=== PATIENT | female | born 1985 | race Caucasian/White ===

== ENCOUNTER 2019-12-16 15:08 | Observation (INO) ==
[2019-12-16 16:03] LABS: Basophils % 0.4 %; Mean Platelet Volume 10.9 fL (9.4-12.4)
[2019-12-16 16:05] LABS: Hematocrit 44.1 % (35.3-44.9); Hemoglobin 14.6 g/dL (11.5-15.4); Immature Granulocytes % 0.9 % (0-4); Immature Platelets 3.9 % (1.1-6.1); Lymphocytes # 0.5 K/mcL (0.6-4.6); Lymphocytes % 8.4 %; Mean Corpuscular HGB Conc 33.1 g/dL (31.6-35.5); Mean Corpuscular Hemoglobin 32.2 pg (28.0-33.3); Mean Corpuscular Volume 97.4 fL (83.0-100.0); Monocytes # 0.5 K/mcL (0.0-1.3); Monocytes % 8.9 %; Neutrophils # 4.6 K/mcL (1.6-8.9); Platelet Count 120 K/mcL (140-400); Red Blood Count 4.53 M/mcL (3.82-4.97); Red Cell Distribution Width 12.2 % (11.5-14.5); Segmented Neutrophils % 81.4 %; White Blood Count 5.6 K/mcL (4.3-11.1)
[2019-12-16 16:14] LABS: Alanine Aminotransferase 84 Units/L (7-52); Albumin 3.7 g/dL (3.5-5.7); Albumin/Globulin Ratio 1.2 (1.1-2.2); Alkaline Phosphatase 75 Units/L (34-104); Aspartate Amino Transferase 68 Units/L (13-39); BUN/Creatinine Ratio 11 (6-26); Bilirubin,Direct 0.1 mg/dL (0.0-0.2); Bilirubin,Indirect 0.3 mg/dL (0.0-1.0); Bilirubin,Total 0.4 mg/dL (0.3-1.0); Blood Urea Nitrogen 9 mg/dL (6-20); Calcium 8.7 mg/dL (8.6-10.3); Carbon Dioxide 27 mEq/L (23-29); Chloride 102 mEq/L (98-107); Globulin 3.2 g/dL (2.4-3.5); Glucose 134 mg/dL (70-105); Osmolality,Calculated 275 (280-300); Potassium 3.8 mEq/L (3.5-5.1); Sodium 132 mEq/L (136-145); Total Protein 6.9 g/dL (6.4-8.9); Troponin I < 0.03 ng/mL (< 0.04); eGFR For African Americans > 60 (> 60); eGFR For Non-African Americans > 60 (> 60)
[2019-12-16 16:18] LABS: Activated Partial Thrombo Time 25.9 Seconds (26.0-36.0); INR 1.1; Prothrombin Time 12.8 Seconds (9.4-12.1)
[2019-12-16] MEDS ORDERED: Isovue-370 500 ML BOTTLE IVP ONE (16:51)
[2019-12-16] MEDS ORDERED: Piperacillin/Tazobactam 3.375 GM in 0.9 % Sodium Chloride Mini Bag 100 ML IVPB ONE (16:58)
[2019-12-16 20:37] LABS: Adenovirus Not Detected (Not Detect); Bordetella Pertussis Not Detected (Not Detect); Chlamydophila pneumoniae Not Detected (Not Detect); Coronavirus 229E Not Detected (Not Detect); Coronavirus HKU1 Not Detected (Not Detect); Coronavirus NL63 Not Detected (Not Detect); Coronavirus OC43 Not Detected (Not Detect); Human Metapneumovirus Not Detected (Not Detect); Human Rhinovirus/Enterovirus Not Detected (Not Detect); Influenza A Subtype 2009 H1 Not Detected (Not Detect); Influenza B Not Detected (Not Detect); Mycoplasma pneumoniae Not Detected (Not Detect); Parainfluenza Virus 1 Not Detected (Not Detect); Parainfluenza Virus 2 Not Detected (Not Detect); Parainfluenza Virus 3 Not Detected (Not Detect); Parainfluenza Virus 4 Not Detected (Not Detect); Respiratory Syncytial Virus Not Detected (Not Detect)
[2019-12-16] MEDS ORDERED: *HR* LORazepam 2 MG/ML VIAL IVP ONE (23:06)
[2019-12-17] MEDS ORDERED: Naloxone 0.4 MG/ML INJ IVP PRN (00:31)
[2019-12-17 02:43] LABS: Hemoglobin 13.8 g/dL (11.5-15.4); Red Cell Distribution Width 12.4 % (11.5-14.5)
[2019-12-17] MEDS ORDERED: Ibuprofen 800 MG TABLET PO ONE (02:43)
[2019-12-17 02:45] LABS: Basophils % 0.6 %; Eosinophils % 0.8 %; Hematocrit 41.1 % (35.3-44.9); Immature Platelets 4.9 % (1.1-6.1); Lymphocytes # 0.7 K/mcL (0.6-4.6); Lymphocytes % 14.1 %; Mean Corpuscular HGB Conc 33.6 g/dL (31.6-35.5); Mean Corpuscular Hemoglobin 32.5 pg (28.0-33.3); Mean Corpuscular Volume 96.9 fL (83.0-100.0); Mean Platelet Volume 11.3 fL (9.4-12.4); Monocytes # 0.5 K/mcL (0.0-1.3); Monocytes % 9.4 %; Neutrophils # 3.8 K/mcL (1.6-8.9); Nucleated Red Blood Cells 0.4 /100 WBC (0); Platelet Count 107 K/mcL (140-400); Red Blood Count 4.24 M/mcL (3.82-4.97); Segmented Neutrophils % 74.1 %; White Blood Count 5.1 K/mcL (4.3-11.1)
[2019-12-17 03:24] LABS: Reactive Lymphocytes Present (Not Present)
[2019-12-17 05:29] LABS: BUN/Creatinine Ratio 11 (6-26); Blood Urea Nitrogen 9 mg/dL (6-20); Calcium 8.5 mg/dL (8.6-10.3); Carbon Dioxide 25 mEq/L (23-29); Chloride 108 mEq/L (98-107); Glucose 114 mg/dL (70-105); Osmolality,Calculated 276 (280-300); Potassium 3.8 mEq/L (3.5-5.1); Sodium 133 mEq/L (136-145); eGFR For African Americans > 60 (> 60); eGFR For Non-African Americans > 60 (> 60)
[2019-12-17] MEDS: *HR* Heparin 5,000 UNIT/ML VIAL SQ SCH ×3 (05:31→20:59)
[2019-12-17] MEDS: Melatonin 3 MG TABLET PO SCH ×2 (05:42→20:58)
[2019-12-17] MEDS: Piperacillin/Tazobactam 3.375 GM in 0.9 % Sodium Chloride Mini Bag 100 ML IVPB SCH ×2 (09:19→15:11)
[2019-12-17] MEDS: BuPROPion XL (24 HR) 150 MG TABLET PO SCH (09:20)
[2019-12-17] MEDS: Nicotine 21 MG PATCH.TD24 TD SCH (09:24)
[2019-12-17] MEDS: *HR* Buprenorphine HCl 8 MG TAB.SUBL SL SCH (11:22)
[2019-12-17] MEDS ORDERED: 0.9 % Sodium Chloride 500 ML IVC ONE (11:26)
[2019-12-17] MEDS ORDERED: hydrOXYzine pamoate 25 MG CAPSULE PO PRN (14:36)
[2019-12-17] MEDS: *HR* LORazepam 0.5 MG TABLET PO PRN ×2 (15:11→23:42)
[2019-12-17] MEDS: Nicotine 2 MG GUM BC PRN ×3 (16:01→23:42)
[2019-12-18] MEDS: Piperacillin/Tazobactam 3.375 GM in 0.9 % Sodium Chloride Mini Bag 100 ML IVPB SCH ×2 (01:25→09:13)
[2019-12-18] MEDS ORDERED: Acetaminophen 325 MG TABLET PO ONE (05:51)
[2019-12-18] MEDS: Nicotine 2 MG GUM BC PRN ×2 (06:59→12:08)
[2019-12-18] MEDS: *HR* Heparin 5,000 UNIT/ML VIAL SQ SCH (06:59)
[2019-12-18 07:15] LABS: Immature Granulocytes % 0.3 % (0-4)
[2019-12-18 07:17] LABS: Basophils % 0.5 %; Eosinophils # 0.4 K/mcL (0.0-0.6); Eosinophils % 6.2 %; Hematocrit 40.7 % (35.3-44.9); Hemoglobin 13.5 g/dL (11.5-15.4); Immature Platelets 5.5 % (1.1-6.1); Lymphocytes # 2.2 K/mcL (0.6-4.6); Lymphocytes % 34.4 %; Mean Corpuscular HGB Conc 33.2 g/dL (31.6-35.5); Mean Corpuscular Hemoglobin 31.8 pg (28.0-33.3); Monocytes # 0.8 K/mcL (0.0-1.3); Monocytes % 12.8 %; Neutrophils # 2.9 K/mcL (1.6-8.9); Platelet Count 138 K/mcL (140-400); Red Blood Count 4.24 M/mcL (3.82-4.97); Red Cell Distribution Width 12.3 % (11.5-14.5); Segmented Neutrophils % 45.8 %; White Blood Count 6.4 K/mcL (4.3-11.1)
[2019-12-18 07:22] LABS: BUN/Creatinine Ratio 10 (6-26); Blood Urea Nitrogen 8 mg/dL (6-20); Calcium 9.2 mg/dL (8.6-10.3); Carbon Dioxide 23 mEq/L (23-29); Chloride 107 mEq/L (98-107); Glucose 94 mg/dL (70-105); Osmolality,Calculated 282 (280-300); Potassium 4.3 mEq/L (3.5-5.1); Sodium 137 mEq/L (136-145); eGFR For African Americans > 60 (> 60); eGFR For Non-African Americans > 60 (> 60)
[2019-12-18 07:49] LABS: Large Platelets Present (Not Present); Platelet Estimate Normal (Normal); Reactive Lymphocytes Present (Not Present)
[2019-12-18] MEDS: BuPROPion XL (24 HR) 150 MG TABLET PO SCH ×2 (09:08→09:09)
[2019-12-18] MEDS: *HR* Buprenorphine HCl 8 MG TAB.SUBL SL SCH (09:08)
[2019-12-18] MEDS: Nicotine 21 MG PATCH.TD24 TD SCH (09:09)
[2019-12-18 09:19] LABS: Rheumatoid Factor < 10 IU/mL (Less than 14)
[2019-12-18 09:42] VITALS: BP 125/81
[2019-12-18] MEDS: *HR* LORazepam 0.5 MG TABLET PO PRN (12:08)
[2019-12-18 12:21] LABS: HIV-1&2 Antibody & p24 Ag Nonreactive (Nonreactive)
[2019-12-18] MEDS ORDERED: FLU Vac QV 19-20 (6Month+)/PF 0.5 ML SYRINGE IM ONE (16:18)
[2019-12-18] MEDS ORDERED: Aminoglycoside Consult 1 EACH MC ONE (17:19)
== END 2019-12-18 17:20 | disposition home or self-care (01) ==
LOC: EMEROOARM 15:08 → 2NENU 15:08 → MERGE 23:24 → 2NENU 12-17 00:30
PROVIDERS: ADMIT Internal Medicine; ATTEND Internal Medicine